=== PATIENT | female | born 1970 | race Caucasian/White ===

== ENCOUNTER 2022-08-20 07:01 | Outpatient (CLI) | payer BC, SELFPAY ==
--- NOTE | 2022-08-20 08:39 | W.ANESCHARGE ---
Anesthesia Charges Start Date/Time Anesthesia Start Date: 08/20/22 Anesthesia Start Time: 08:05 Stop Date/Time Anesthesia Stop Date: 08/20/22 Anesthesia Stop Time: 08:35
--- NOTE | 2022-08-20 10:01 | W.ANESCHARGE ---
Anesthesia Charges Start Date/Time Anesthesia Start Date: 08/20/22 Anesthesia Start Time: 08:05 Stop Date/Time Anesthesia Stop Date: 08/20/22 Anesthesia Stop Time: 08:35
== END 2022-08-20 07:02 | disposition home or self-care (01) ==
PROVIDERS: PCP Physician Assistant; Visit Provider Internal Medicine Gastroenterology
DX: Z12.11 Encounter for screening for malignant neoplasm of colon (principal); K63.5 Polyp of colon
CPT/HCPCS: 00811; 45385; 88305; J2704